=== PATIENT | male | born 1990 | race African-American/Black ===

== ENCOUNTER 2021-08-23 18:36 | Emergency (ER) | payer OTHER ==
[~2021-08-23] VITALS: Ht 185.4 cm; Wt 100.0 kg
[2021-08-23] MEDS ORDERED: NAPR-1176 MT (19:13)
[2021-08-23] MEDS ORDERED: CYCL10TA7 MT (19:14)
[2021-08-23] MEDS ORDERED: ACETAMINOPHEN 325MG TABLET PO ONE (19:15)
[2021-08-23] MEDS ORDERED: IBUPROFEN 600MG TABLET PO ONE (19:15)
[2021-08-23 19:50] VITALS: BP 134/79
== END 2021-08-23 19:50 | disposition home or self-care (01) ==
LOC: ER 18:36
DX: S16.1XXA Strain of muscle, fascia and tendon at neck level, initial encounter (principal); S39.012A Strain of muscle, fascia and tendon of lower back, initial encounter; J45.909 Unspecified asthma, uncomplicated; Z88.0 Allergy status to penicillin; V49.50XA Passenger injured in collision with unspecified motor vehicles in traffic accident, initial encounter; Y93.89 Activity, other specified; Y92.89 Other specified places as the place of occurrence of the external cause; Y99.8 Other external cause status
CPT/HCPCS: 72040; 99283